=== PATIENT | female | born 1950 | race Caucasian/White ===

== ENCOUNTER 2021-10-10 10:31 | Outpatient (REF) | payer MEDICARE, MEDICAID, SELFPAY ==
[2021-10-10 11:20] LABS: Blood Urea Nitrogen 11 mg/dL (9-16); Estimated Glomerular Filt Rate > 60
== END 2021-10-10 10:32 | disposition home or self-care (01) ==
LOC: HO.LAB 10:31
PROVIDERS: PCP Internal Medicine; Visit Provider Psychiatry & Neurology Neurology
DX: I63.9 Cerebral infarction, unspecified (principal)
CPT/HCPCS: 36415; 82565; 84520

== ENCOUNTER 2021-10-13 13:57 | Outpatient (REF) | payer MEDICARE, MEDICAID, SELFPAY ==
--- NOTE | ~2021-10-13 | CT_ITS ---
EXAMINATION: CTA OF THE HEAD AND NECK CLINICAL INFORMATION: Cerebral infarction unspecified. COMPARISON: None. TECHNIQUE: Test bolus sequences followed by intravenous administration 70 mL of Omnipaque 350. Helical imaging was performed in the axial plane from the mediastinum to the skull vertex. Delayed postcontrast imaging of the head was also performed. The data was processed at the genetic technologist's workstation for generation of MIP sequences. Three-dimensional volume rendered reformatted images were also generated at an offline 3-D workstation. Stenoses are assessed in accordance with NASCET criteria unless otherwise indicated. Limited study with motion artifacts. This CT examination was performed using dose optimization techniques as appropriate, variously including the following: *Automated exposure control *Adjustment of mA and/or kV according to patient size (this includes techniques or standardized protocols for targeted exams where dose is matched to indication/reason for exam; i.e. extremities or head) *Use of iterative reconstruction technique DLP: 2119 mGy-cm FINDINGS: CT HEAD: There is diffuse parenchymal volume loss with ex vacuo dilatation of the ventricles, concordant with sulcal prominence. Encephalomalacia is noted within the right parietal lobe due to a chronic infarct. There is no evidence of acute intracranial hemorrhage or territorial infarction. No abnormal mass effect or midline shift is seen. No extra-axial fluid collections are identified. 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 There is no abnormal enhancement. The osseous structures and soft tissues are normal. The mastoid air cells and visualized portions of the paranasal sinuses are well aerated. CTA NECK: The imaged aortic arch and origins of the great vessels are normal in caliber with mild atherosclerotic wall calcifications. The common carotid arteries are widely patent. Atherosclerotic wall calcifications present at the left carotid bifurcation with severe stenotic narrowing at the origin of the left ECA and an 80% stenosis at the origin of the left ICA. The remainder of the cervical left internal carotid artery is normal in caliber. Atherosclerotic wall calcifications visible at the right carotid bifurcation with eccentric lipid-rich plaque, however, no significant stenosis is visible. The remainder of the cervical right ICA is normal in caliber with a retropharyngeal course. The vertebral arteries opacify normally and are of normal caliber. The soft tissues of the neck are unremarkable. Nebx-ct-pwokgbsg cervical spondylosis noted, particularly at the C4-C5 and C5-C6 levels. There are obepvzct-dv-[id number] emphysematous changes in the lungs which are otherwise clear. No acute osseous abnormality is seen. CTA HEAD: The intradural vertebral arteries and basilar artery are normal. The left [employer] is widely patent. Mild multifocal stenoses present in the right [employer] vasculature. Mild atherosclerotic wall calcifications visible in the left internal carotid artery without significant stenosis, however, there is moderate stenosis at the carotid terminus. The cavernous segment of the right ICA is of normal caliber. The supraclinoid right internal carotid artery is severely diminutive and stenotic through its entirety to the carotid terminus. The left M1 segment is diminutive in caliber. Multiple lenticulostriate branches are visible in the deep aspect of the sylvian fissure. The right M1 vessel is poorly seen with numerous hypertrophied lenticulostriate vessels in the sylvian fissure. The M2 branches and MCA bifurcation appear relatively normal on the right side. The TATE bilaterally are normal. The venous sinuses opacify normally. CT/CT angio head neck IMPRESSION: Significant atherosclerotic disease with an 80% stenosis at the origin of the cervical left internal carotid artery. Steno-occlusive changes of the supraclinoid internal carotid arteries, worse on the right side as described with hypertrophied lenticulostriate vessels and a diminutive appearance of the right greater than left M1 segments. Imaging findings most indicative for moyamoya changes. Chronic infarct with encephalomalacia in the right parietal lobe. No abnormal enhancement. Zmgkjlyt-[id number]-ybbvnf emphysematous changes in the lungs.
[2021-10-13] MEDS: iohexoL 350 MG/ML 100 ML INFUS..BTL IV (15:11)
== END 2021-10-13 13:58 | disposition home or self-care (01) ==
LOC: HO.CT 13:57
PROVIDERS: PCP Internal Medicine; Visit Provider Psychiatry & Neurology Neurology
DX: I63.9 Cerebral infarction, unspecified (principal)
CPT/HCPCS: 70496; 70498; Q9967

== ENCOUNTER 2022-01-02 11:16 | Outpatient (REF) | payer OTHER, SELFPAY ==
[2022-01-02 11:47] LABS: MANUAL DIFF FLAG NO
[2022-01-02 11:56] LABS: Basophils Percent Auto 0.5 % (0-2); Eosinophils Absolute Auto 0.2 X10*3/uL (0.0-0.4); Hematocrit 45.1 % (37.0-47.0); Hemoglobin 14.5 g/dl (12.0-16.0); Imm Gran Abs Auto 0.02 X10*3/uL (0.00-0.03); Imm Gran Pct Auto 0.3 % (0.0-0.4); Lymphocytes Absolute Auto 0.7 X10*3/uL (1.2-4.9); Mean Corpuscular HGB Conc 32.2 g/dl (31.0-35.0); Mean Corpuscular Hemoglobin 29.7 pg (27.0-33.0); Mean Corpuscular Volume 92.4 fL (80.0-98.0); Mean Platelet Volume 9.2 fL (9.4-12.3); Monocytes Absolute Auto 0.4 X10*3/uL (0.1-1.2); Monocytes Percent Auto 6.2 % (2-11); Platelet Count 229 X10*3/uL (160-400); Red Blood Count 4.88 X10*6/uL (4.20-5.50); Red Cell Distribution Width 12.9 % (11.0-16.0); White Blood Count 6.3 X10*3/uL (4.8-10.8)
[2022-01-02 12:12] LABS: INTERNATIONAL NORM RATIO 1.6 (0.9-1.1); Prothrombin Time 19.3 SEC (10.0-13.1)
[2022-01-02 12:33] LABS: Anion Gap 10 (12-20); Blood Urea Nitrogen 11 mg/dL (9-16); Calcium 9.9 mg/dL (8.4-10.2); Carbon Dioxide 25 mmol/L (22-29); Chloride 109 mmol/L (96-108); Estimated Glomerular Filt Rate > 60; Glucose Random 106 mg/dL (60-115); Potassium 4.2 mmol/L (3.3-5.1); Sodium 140 mmol/L (135-145)
== END 2022-01-02 11:17 | disposition home or self-care (01) ==
LOC: HO.LAB 11:16
PROVIDERS: PCP Internal Medicine; Visit Provider Neurological Surgery
DX: Z01.818 Encounter for other preprocedural examination (principal); I67.1 Cerebral aneurysm, nonruptured; Z79.02 Long term (current) use of antithrombotics/antiplatelets; Z79.01 Long term (current) use of anticoagulants
CPT/HCPCS: 36415; 80048; 85025; 85610

== ENCOUNTER 2022-07-17 11:24 | Outpatient (REF) | payer OTHER, SELFPAY ==
--- NOTE | ~2022-07-17 | US_ITS ---
EXAMINATION: US EXTRACRANIAL CAROTID DUPLEX, BILATERAL CLINICAL INFORMATION: Cerebral infarction COMPARISON: None TECHNIQUE: Real-time ultrasound and Doppler techniques (integrating B-mode 2-D vascular images, Doppler spectral analysis and color-flow Doppler imaging) were utilized to interrogate the extracranial carotid arteries, the vertebral arteries and proximal subclavian arteries bilaterally. The degree of stenosis is determined by criteria similar to NASCET. FINDINGS: Right Side: 1. There is moderate atherosclerotic plaque seen in the bifurcation/proximal ICA region. 2. The common carotid artery PSV proximally is 59.5 cm/s and distally 41.3 cm/s. 3. The proximal internal carotid artery velocities are 320 cm/s systolic and 29.1 cm/s diastolic. 4. The proximal external carotid artery PSV is 62.4 cm/s. 5. The vertebral artery shows 70.2 flow. 6. The subclavian artery waveforms are normal. Left Side: 1. There is mild atherosclerotic plaque seen in the bifurcation/proximal ICA region. 2. The common carotid artery PSV proximally is 74.6 cm/s and distally 67.1 cm/s. 3. The proximal internal carotid artery velocities are 132 cm/s systolic and 30 cm/s diastolic. 4. The proximal external carotid artery PSV is elevated at 353 cm/s. 5. The vertebral artery shows antegrade flow. 6. The subclavian artery waveforms are biphasic and demonstrating elevated velocities of 241 cm/s. US/US carotid duplex BI IMPRESSION: RIGHT: Moderate, hemodynamically significant stenosis of the proximal right internal carotid artery corresponding to a 50-79% stenosis by velocity criteria. LEFT: 1. Minimal, non-hemodynamically significant stenosis of the proximal left internal carotid artery corresponding to a 0-49% stenosis by velocity criteria. 2. Elevated velocities within the external carotid and subclavian artery suggestive of more proximal stenosis.
== END 2022-07-17 11:25 | disposition home or self-care (01) ==
LOC: HO.US 11:24
PROVIDERS: Visit Provider Psychiatry & Neurology Neurology
DX: Z86.73 Personal history of transient ischemic attack (TIA), and cerebral infarction without residual deficits (principal)
CPT/HCPCS: 93880

== ENCOUNTER 2024-02-22 15:40 | Outpatient (REF) | payer OTHER, SELFPAY ==
--- NOTE | ~2024-02-22 | MR_ITS ---
EXAMINATION: MRI ORBIT WITHOUT AND WITH CONTRAST CLINICAL INFORMATION: Orbital mass. COMPARISON: CTA head and neck October 13, 2021. TECHNIQUE: MRI of the orbits was obtained using routine sequences without and with contrast. Intravenous contrast: 6 ml Gadavist FINDINGS: There is a large 3.1 cm TV by 3.3 cm AP by 2.8 cm CC exophytic hypervascular mass involving the left upper palpebrae/preseptal soft tissues and the left lacrimal gland that partially encases the anterior and left lateral aspect of the left globe prosthesis. The lesion infiltrates the anterior aspect of the left superior/levator musculature complex and the anterior aspect of the left lateral rectus muscle. There may be infiltration of the left supraorbital foramen and as well as that infiltrates the anterior aspect left supraorbital nerve,. There is focal enhancement of the posterior intraorbital left optic nerve on axial image 17 of series 12 and coronal image 18 of series 13 that can be compared to any prior MRIs available as this could be posttreatment related or reflect perineural tumor spread.. There is no intracranial extension of tumor. No right-sided intraorbital mass. The left optic nerve is partially discontinuous and atrophic. Bone marrow signal is homogenous and normal. Partial loss of the right internal carotid artery flow void and multiple bilateral lenticulostriate collateral vessels with attenuated middle cerebral artery flow voids, findings compatible with patient's known history of moyamoya. Intracranially there is global cerebral volume loss, chronic microangiopathy, and a partially imaged chronic infarct within the right cerebral hemisphere. 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 There may be infiltration of the left supraorbital foramen and as well as that infiltrates the anterior aspect left supraorbital nerve,. There is no intracranial extension of tumor. 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 There is focal enhancement of the posterior intraorbital left optic nerve on axial image 17 of series 12 and coronal image 18 of series 13 that can be compared to any prior MRIs available as this could be posttreatment related or reflect perineural tumor spread.. * Partial loss of the right internal carotid artery flow void and multiple bilateral lenticulostriate collateral vessels with attenuated middle cerebral artery flow voids, findings compatible with patient's known history of moyamoya. Electronically signed by: Lucas Desir MD 02/28/2024 04:55 PM EDT
[2024-02-22] MEDS: gadobutroL 7.5 ML VIAL IVPUSH (16:44)
== END 2024-02-22 15:41 | disposition home or self-care (01) ==
LOC: HO.MRI 15:40
PROVIDERS: PCP Internal Medicine; Visit Provider Ophthalmology
DX: H05.89 Other disorders of orbit (principal)
CPT/HCPCS: 70543; A9585